=== PATIENT | female | born 1995 | race Caucasian/White ===

== ENCOUNTER → 2017-07-21 | Outpatient (CLI) | payer MEDICARE, OTHER | END | disposition home or self-care (01) | LOC: KCIC 12:15 | DX: S99.911D Unspecified injury of right ankle, subsequent encounter (principal); M25.562 Pain in left knee; M25.561 Pain in right knee; M54.5 Low back pain; X58.XXXD Exposure to other specified factors, subsequent encounter | CPT/HCPCS: 72110; 73562; 73610 ==